=== PATIENT | female | born 1940 | race Caucasian/White ===

== ENCOUNTER 2023-03-02 14:36 | Emergency (ER) | payer MEDICARE ==
[~2023-03-02] VITALS: Ht 157.5 cm; Wt 66.0 kg
[2023-03-02 14:42] VITALS: BP 182/143
[2023-03-02 14:48] VITALS: BP 176/88
[2023-03-02 14:52] VITALS: BP 180/93
[2023-03-02 15:18] LABS: BASO% 0.4 % (0-3); EOS% 3.2 % (0-8); HEMATOCRIT 34.3 % (37.0-47.0); HEMOGLOBIN 10.5 g/dl (12.0-16.0); IMMATURE GRANULOCYTES 0.3 % (0.0-5.0); MEAN CELL VOLUME 94.5 fL CALC (80.0-100.0); MEAN CORPUSCULAR HGB 28.9 pG CALC (26.0-32.0); MEAN CORPUSCULAR HGB CONC 30.6 g/dL CAL (32.0-36.0); MONO% 6.8 % (2-13); NEUT# 4.12 thou/uL (2.00-7.15); NEUT% 59.3 % (42-76); RED BLOOD COUNT 3.63 mill/uL (4.20-5.60); RED CELL DISTRI WIDTH 15.7 % (11.5-15.5)
[2023-03-02 15:28] LABS: ALBUMIN 3.8 g/dL (3.2-5.0); BILIRUBIN, TOTAL 0.7 mg/dL (0.02-1.3); CREATININE 1.5 mg/dL (0.5-1.0); TOTAL PROTEIN 7.4 g/dL (6.3-8.2)
[2023-03-02 15:31] VITALS: BP 192/69
[2023-03-02 16:01] VITALS: BP 172/86
[2023-03-02 16:57] VITALS: BP 172/86
== END 2023-03-02 17:46 ==
LOC: ED 14:36
PROVIDERS: Family Medicine
DX: S06.0X0A Concussion without loss of consciousness, initial encounter (principal); S16.1XXA Strain of muscle, fascia and tendon at neck level, initial encounter; M54.9 Dorsalgia, unspecified; I10 Essential (primary) hypertension; E11.9 Type 2 diabetes mellitus without complications; I48.91 Unspecified atrial fibrillation; W19.XXXA Unspecified fall, initial encounter; Y93.9 Activity, unspecified; Y92.099 Unspecified place in other non-institutional residence as the place of occurrence of the external cause; Z79.01 Long term (current) use of anticoagulants

== ENCOUNTER 2023-08-24 18:18 | Emergency (ER) | payer MEDICARE ==
[~2023-08-24] VITALS: Ht 157.5 cm; Wt 80.0 kg
[2023-08-24] MEDS ORDERED: AMLODIPINE BESYL5 MG PO (18:29)
[2023-08-24] MEDS ORDERED: TENORMIN25 MG PO (18:29)
[2023-08-24] MEDS ORDERED: ATORVASTATIN CA20 MG PO (18:29)
[2023-08-24] MEDS ORDERED: CEROVIT2 PO (18:30)
[2023-08-24] MEDS ORDERED: DIPROLENE15 G1 EX (18:30)
[2023-08-24] MEDS ORDERED: ELIQUIS5 MG PO (18:30)
[2023-08-24] MEDS ORDERED: GABAPENTIN300 M2 PO (18:31)
[2023-08-24] MEDS ORDERED: COZAAR100 MG PO (18:33)
[2023-08-24] MEDS ORDERED: OMEPRAZOLE DR40 MG PO (18:33)
[2023-08-24] MEDS ORDERED: METFORMIN HCL1000 MG PO (18:33)
[2023-08-24] MEDS ORDERED: ZOLOFT100 MG PO (18:45)
[2023-08-24] MEDS ORDERED: TORSEMIDE20 M1 PO (18:45)
[2023-08-24] MEDS ORDERED: XANAX0.25 MG PO (18:45)
[2023-08-24] MEDS ORDERED: TRAMADOL HCL50 MG PO (18:46)
[2023-08-24 18:51] LABS: BASO% 0.4 % (0-3); EOS% 2.9 % (0-8); HEMATOCRIT 35.8 % (37.0-47.0); HEMOGLOBIN 11.3 g/dl (12.0-16.0); IMMATURE GRANULOCYTES 0.2 % (0.0-5.0); LYMPH% 28.7 % (15-41); MEAN CELL VOLUME 97.8 fL CALC (80.0-100.0); MEAN CORPUSCULAR HGB 30.9 pG CALC (26.0-32.0); MEAN CORPUSCULAR HGB CONC 31.6 g/dL CAL (32.0-36.0); MONO% 7.2 % (2-13); NEUT# 5.79 thou/uL (2.00-7.15); NEUT% 60.6 % (42-76); RED BLOOD COUNT 3.66 mill/uL (4.20-5.60); RED CELL DISTRI WIDTH 13.7 % (11.5-15.5)
[2023-08-24 18:59] VITALS: BP 177/90
[2023-08-24 19:01] VITALS: BP 181/86
[2023-08-24 19:01] LABS: ALKALINE PHOSPHATASE 112 u/l (38-126); ANION GAP 15 (6-22 (CALC)); BUN 30 mg/dL (8-23); BUN/CREATININE RATIO 21 (12-20 (CALC)); CARBON DIOXIDE 24 mmol/l (22-30); CHLORIDE 103 mmol/l (95-108); CREATININE 1.4 mg/dL (0.5-1.0); GFR FOR AFR.AMER. 44 ML/MIN (>=60 (CALC)); GFR OTHER RACES 36 ML/MIN (>=60 (CALC)); SGOT/AST 30 u/l (9-36); SODIUM 138 mmol/l (137-146); TOTAL PROTEIN 7.6 g/dL (6.3-8.2)
[2023-08-24 19:02] LABS: BILIRUBIN, TOTAL 0.4 mg/dL (0.02-1.3)
[2023-08-24 19:09] LABS: URINE BILIRUBIN - DIPSTICK Negative (NEGATIVE); URINE BLOOD DIPSTICK Trace-intact (NEGATIVE); URINE GLUCOSE - DIPSTICK Negative (NEGATIVE); URINE KETONE Negative (NEGATIVE); URINE LEUK ESTERASE Trace (NEGATIVE); URINE NITRITE - DIPSTICK Negative (Negative); URINE PROTEIN - DIPSTICK 100 mg/dL (NEG-TRACE); URINE UROBILINOGEN - DIPSTICK 0.2 E.U./dL (0.2)
[2023-08-24 19:14] LABS: URINE COLOR Yellow
[2023-08-24 19:15] LABS: URINE RBC 0-2 RBC/hpf (0-5); URINE SQUAMOUS EPITHELIAL CELL FEW EPI/hpf (0-FEW); URINE WBC 0-2 WBC/hpf (0-5)
[2023-08-24 19:57] VITALS: BP 177/80
[2023-08-24 20:01] VITALS: BP 160/76
[2023-08-24 20:07] VITALS: BP 160/76
== END 2023-08-24 21:31 | disposition home or self-care (01) ==
LOC: ED 18:18
PROVIDERS: Family Medicine
DX: S00.93XA Contusion of unspecified part of head, initial encounter (principal); S16.1XXA Strain of muscle, fascia and tendon at neck level, initial encounter; M54.50 Low back pain, unspecified; I10 Essential (primary) hypertension; I48.91 Unspecified atrial fibrillation; W01.0XXA Fall on same level from slipping, tripping and stumbling without subsequent striking against object, initial encounter; Y92.129 Unspecified place in nursing home as the place of occurrence of the external cause; Z79.01 Long term (current) use of anticoagulants

== ENCOUNTER 2024-06-11 18:50 | Emergency (ER) | payer MEDICARE ==
[~2024-06-11] VITALS: Ht 157.5 cm; Wt 81.6 kg
[2024-06-11] VITALS (7 sets, daily range): BP systolic 132–172; BP diastolic 71–99
[~2024-06-11 18:50] MED LIST: AMLODIPINE BESYL5 MG PO; ATORVASTATIN CA20 MG PO; CEROVIT2 PO; COZAAR100 MG PO; DIPROLENE15 G1 EX; ELIQUIS5 MG PO; GABAPENTIN300 M2 PO; METFORMIN HCL1000 MG PO; OMEPRAZOLE DR40 MG PO; TENORMIN25 MG PO; TORSEMIDE20 M1 PO; TRAMADOL HCL50 MG PO; XANAX0.25 MG PO; ZOLOFT100 MG PO
[2024-06-11] MEDS ORDERED: SODIUM CHLORIDE 0.9% 1,000 ML IV ONE (19:10)
[2024-06-11 19:37] LABS: BASO% 0.2 % (0-3); HEMATOCRIT 36.2 % (37.0-47.0); HEMOGLOBIN 11.3 g/dl (12.0-16.0); IMMATURE GRANULOCYTES 0.8 % (0.0-5.0); LYMPH% 18.1 % (15-41); MEAN CELL VOLUME 93.1 fL CALC (80.0-100.0); MEAN CORPUSCULAR HGB CONC 31.2 g/dL CAL (32.0-36.0); MONO% 6.6 % (2-13); NEUT# 8.5 thou/uL (2.00-7.15); NEUT% 72.3 % (42-76); RED BLOOD COUNT 3.89 mill/uL (4.20-5.60); RED CELL DISTRI WIDTH 14.5 % (11.5-15.5)
[2024-06-11] MEDS ORDERED: HYDROmorphone HCL 2 MG/AMP IV ONE (19:40)
[2024-06-11 19:49] LABS: ALBUMIN 3.6 g/dL (3.2-5.0); ALKALINE PHOSPHATASE 89 u/l (38-126); ANION GAP 10 (6-22 (CALC)); BILIRUBIN, TOTAL 0.4 mg/dL (0.02-1.3); BUN 27 mg/dL (8-23); BUN/CREATININE RATIO 21 (12-20 (CALC)); CARBON DIOXIDE 26 mmol/l (22-30); CHLORIDE 109 mmol/l (95-108); CREATININE 1.3 mg/dL (0.5-1.0); ESTIMATED GFR 41 ML/MIN (>=90 (CALC)); POTASSIUM 4.2 mmol/l (3.5-5.1); SGOT/AST 34 u/l (9-36); SODIUM 140 mmol/l (137-146); TOTAL PROTEIN 6.5 g/dL (6.3-8.2)
[2024-06-11 19:55] LABS: INTERNATIONAL NORMALIZED RATIO 1.2 RATIO (0.7-1.3)
[2024-06-11 19:59] LABS: PROTHROMBIN TIME 11.6 SECONDS (9.0-12.5)
[2024-06-11] MEDS ORDERED: FERROUS SULFAT325 MG PO (21:25)
[2024-06-11] MEDS ORDERED: HYDROXYCHLOROQ200 MG PO (21:30)
[2024-06-11] MEDS ORDERED: MORPHINE SULFATE 4 MG/ML VIAL IV ONE (22:15)
[2024-06-11 23:43] LABS: URINE BILIRUBIN - DIPSTICK Negative (NEGATIVE); URINE BLOOD DIPSTICK Negative (NEGATIVE); URINE GLUCOSE - DIPSTICK Negative (NEGATIVE); URINE KETONE Negative (NEGATIVE); URINE LEUK ESTERASE Negative (NEGATIVE); URINE NITRITE - DIPSTICK Negative (Negative); URINE PH 5.5 (4.5-8.0); URINE PROTEIN - DIPSTICK 100 mg/dL (NEG-TRACE); URINE SPECIFIC GRAVITY 1.025; URINE UROBILINOGEN - DIPSTICK 0.2 E.U./dL (0.2)
[2024-06-11 23:48] LABS: URINE COLOR Yellow
[2024-06-11 23:50] LABS: URINE BACTERIA MODERATE hpf; URINE EPITHELIAL CELLS MODERATE EPI/hpf (0-FEW)
[2024-06-12] VITALS (13 sets, daily range): BP systolic 161–196; BP diastolic 84–121
[2024-06-12] MEDS ORDERED: HYDROmorphone HCL 2 MG/AMP IV SCH (02:00)
[2024-06-12] MEDS ORDERED: cloNIDine HCL 0.1 MG/TAB PO SCH (02:00)
== END 2024-06-12 03:06 | disposition short-term general hospital (02) ==
LOC: ED 18:50
PROVIDERS: Clinical Nurse Specialist Emergency
DX: S72.145A Nondisplaced intertrochanteric fracture of left femur, initial encounter for closed fracture (principal); I12.9 Hypertensive chronic kidney disease with stage 1 through stage 4 chronic kidney disease, or unspecified chronic kidney disease; N18.30 Chronic kidney disease, stage 3 unspecified; I48.91 Unspecified atrial fibrillation; E78.5 Hyperlipidemia, unspecified; F41.9 Anxiety disorder, unspecified; F32.A Depression, unspecified; Z79.01 Long term (current) use of anticoagulants; W01.0XXA Fall on same level from slipping, tripping and stumbling without subsequent striking against object, initial encounter; Y93.H2 Activity, gardening and landscaping; Y92.099 Unspecified place in other non-institutional residence as the place of occurrence of the external cause